=== PATIENT | male | born 1990 | race Caucasian/White ===

== ENCOUNTER 2017-07-10 13:54 | Emergency (ER) | payer OTHER ==
[~2017-07-10] VITALS: Ht 177.8 cm; Wt 86.4 kg
[2017-07-10 13:55] VITALS: PULSE 133; TEMP 98.9
[2017-07-10] MEDS ORDERED: NORCO 325 MG-51 TAB PO (15:20)
[2017-07-10 16:41] VITALS: BP 167/99
== END 2017-07-10 16:43 | disposition home or self-care (01) ==
LOC: COL.ER 13:54
DX: T23.202A Burn of second degree of left hand, unspecified site, initial encounter (principal); T31.0 Burns involving less than 10% of body surface; Z23 Encounter for immunization; W86.8XXA Exposure to other electric current, initial encounter; Y92.69 Other specified industrial and construction area as the place of occurrence of the external cause; Y99.0 Civilian activity done for income or pay
CPT/HCPCS: J1170